=== PATIENT | female | born 1980 | race Caucasian/White ===

== ENCOUNTER 2020-10-15 18:32 | Emergency (ER) | payer OTHER ==
[~2020-10-15] VITALS: Ht 162.6 cm; Wt 63.5 kg
[~2020-10-15 18:32] MED LIST: IBUPROFEN 800800 M1 PO; NOHOMEMEDICATIONS; ROBAXIN 750 MG750 MG PO; ULTRAM 50MG TAB50 MG PO
[2020-10-15] MEDS ORDERED: BENTYL 10 MG CA10 M1 PO (18:47)
[2020-10-15 18:56] LABS: URINE BILIRUBIN NEGATIVE (Negative); URINE BLOOD 3+ (Negative); URINE CLARITY SL CLOUDY; URINE COLOR YELLOW; URINE GLUCOSE-RANDOM NEGATIVE (Negative); URINE KETONES NEGATIVE (Negative); URINE LEUKOCYTES-REFLEX TRACE (Negative); URINE PROTEIN 2+ (Negative); URINE SPECIFIC GRAVITY >= 1.030 (1.005-1.030); URINE UROBILINOGEN 0.2 E.U./dl (0.2-1.0)
[2020-10-15 19:00] LABS: URINE NITRITE-REFLEX POSITIVE (Negative)
[2020-10-15 19:01] LABS: BACTERIA-REFLEX 1-9 Few /HPF (None Seen); CASTS None Seen /LPF (None Seen); CRYSTALS None Seen /LPF (None Seen); MUCUS 0-3 Light strn/LPF (None Seen); SQUAMOUS 4-10 Moderate /LPF (0-3); URINE RBC >20 Many /HPF (0-2); URINE WBC-REFLEX 0-5 Rare /HPF (0-5)
[2020-10-15 19:31] LABS: ABSOLUTE BASOPHILS 0.1 thou/uL (0.0-0.2); ABSOLUTE EOSINOPHILS 0.1 thou/uL (0.0-0.7); ABSOLUTE LYMPHOCYTES 2.7 thou/uL (0.8-5.3); ABSOLUTE MONOCYTES 1.1 thou/uL (0.0-1.2); ABSOLUTE NEUTROPHILS 10.1 thou/uL (1.6-8.1); BASOPHILS 0.8 %; HEMATOCRIT 36.8 % (37.0-47.0); HEMOGLOBIN 12.4 gm/dL (12.0-15.0); LYMPHOCYTES 19.1 %; MCH 30.9 pg (26.0-34.0); MCHC 33.6 g/dL (28.0-37.0); MCV 91.9 fL (80.0-100.0); MONOCYTES 7.7 %; MPV 8.4 fl. (7.2-11.1); NUCLEATED RBCS 0 /100WBC; PLATELET COUNT* 257 thou/uL (150-400); POLYS 71.4 %; RBC 4.01 mil/uL (4.20-5.00); WBC 14.1 thou/uL (4.0-11.0)
[2020-10-15 19:36] LABS: CALCIUM 8.9 mg/dL (8.5-10.1); CREATININE 0.7 mg/dL (0.6-1.3); POTASSIUM 3.2 mmol/L (3.5-5.1)
[2020-10-15 19:40] LABS: ALBUMIN 3.9 g/dL (3.4-5.0); TOTAL BILIRUBIN 0.4 mg/dL (<0.1-1.0); TOTAL PROTEIN 7.7 g/dL (6.4-8.2)
[2020-10-15] MEDS ORDERED: NORCO5 PO (21:30)
[2020-10-15] MEDS ORDERED: LEVOFLOXACIN500 MG PO (21:30)
[2020-10-15] MEDS ORDERED: PHENERGAN 25 MG25 M1 PO (21:30)
[2020-10-15] MEDS ORDERED: ZOFRAN ODT4 MG PO (21:30)
[2020-10-15 21:42] VITALS: BP 121/70
== END 2020-10-15 21:43 | disposition home or self-care (01) ==
LOC: M.ERS 18:32
PROVIDERS: Nurse Practitioner Family
DX: N39.0 Urinary tract infection, site not specified (principal)